=== PATIENT | female | born 1960 | race Caucasian/White ===

== ENCOUNTER → 2018-04-12 | Outpatient (CLI) | payer OTHER | END | disposition home or self-care (01) | LOC: LABPAT 15:49 | PROVIDERS: ATTEND Anesthesiology | DX: Z01.818 Encounter for other preprocedural examination (principal); I10 Essential (primary) hypertension; T85.49XA Other mechanical complication of breast prosthesis and implant, initial encounter; Z85.3 Personal history of malignant neoplasm of breast | CPT/HCPCS: 93005 ==

== ENCOUNTER 2018-04-17 07:23 | Day surgery (SDC) | payer OTHER ==
[2018-04-11 16:18] VITALS: BMI 38.6
[~2018-04-17 07:23] MED LIST: DEXAMETHASONE SOD PHOSPHATE 10 MG/ML 1 ML VIAL IV ONE; HYDROmorphone 1 MG/ML 1 ML SYRINGE IVP PRN; LACTATED RINGERS 1,000 ML IV SCH; LIDOCAINE 1% 20 ML VIAL (10MG/ML) FOR IV START INTRADERMA PRN; MIDAZOLAM 2 MG/2 ML VIAL IV PRN; Pre Op ABX Message 1 EACH MISC MISCELLANE ONE; SCOPOLAMINE 1.5MG/72HR PATCH TRANSDERM ONE
[2018-04-17 07:57] VITALS: RESP 16
[2018-04-17] MEDS: ONDANSETRON 4 MG/2 ML VIAL IVP ONE ×2 (07:57→11:13)
[2018-04-17] MEDS ORDERED: SODIUM CHLORIDE 0.9% 50 ML with ceFAZolin 2,000 MG IV ONE ×2 (09:38)
[2018-04-17 10:45] VITALS: TEMP 96.8
[2018-04-17] MEDS ORDERED: LACTATED RINGERS 1,000 ML IV ONE (10:55)
[2018-04-17] MEDS ORDERED: METOCLOPRAMIDE 5 MG/ML 2 ML VIAL IVP ONE (11:31)
--- NOTE | 2018-04-17 11:31 | OP ---
OPERATIVE REPORT SURGEON: Christopher Roth MD. DATE OF SURGERY: 04/17/2018 PREOPERATIVE DIAGNOSES: 1. Mechanical failure, left breast implant. 2. Personal history of breast cancer. POSTOPERATIVE DIAGNOSES: 1. Mechanical failure, left breast implant. 2. Personal history of breast cancer. OPERATIVE PROCEDURE: Exploration of left reconstructed breast with delayed reconstruction via replacement of implant and revision of reconstructed breast. OPERATIVE INDICATIONS: The patient is a 57-year-old female who has undergone bilateral mastectomy in 2007 for treatment of breast cancer. She underwent bilateral breast reconstruction via tissue instrument designer technique and had saline implants placed after completing expansion. The patient has not been seen in many years, returned to the office approximately 2 weeks ago, reporting a significant decrease in volume involving the left reconstructive breast. Clinical examination was consistent with a rupture of the left breast implant or failure. The patient was counseled as potential options for surgery and elected upon replacement of her left breast implant with necessary revision to the reconstructed breast. She understands the potential risks and complications with all surgery including, but not limited to, infection, wound healing problems, seroma, hematoma, among others. She has requested I perform the surgery. OPERATIVE PROCEDURE SUMMARY: The patient was seen in the presurgical area, markings made, procedure reviewed. All questions answered. She was transported to the operative room where she was placed in the supine position. Following induction of general endotracheal anesthesia, the patient is prepped and draped in the usual fashion. The markings placed preoperatively were now re inked using skin marker. Incision was made following diagram placed on the lateral aspect of the patient's mastectomy incision. Tissues divided in full-thickness fashion with a 10 blade scalpel and subcutaneous tissues divided using cautery until reaching the underlying muscle fascial plane. Skin and subcutaneous tissue flaps were dissected off the muscle fascial plane for approximately 2 cm and then a transverse incision made through this layer offset from the first transverse incision. Incisions made to cauterization exposing the failed left breast implant. The implant was removed and discarded. The cavity had serous fluid, it was not cloudy. There were no exudates, no granulation tissue. The cavity was irrigated. The cavity had significant scar tissue contracture. It required significant modification to create a sufficient size plane for placement of the new saline implant. Dissection was performed with cauterization, dividing scarred expansion capsule and re-elevating portion of the patient's pectorals major muscle flap. Multiple cruciate incisions were made through the expansion capsule layers as well to release the tightness of the structure. Irrigation was performed using several liters of fluid. Hemostasis maintained with cauterization. Gloves were now changed. Nattonye saline-filled breast implant, 363-LF 690 mL volume model was opened on the field, reference #[id number], serial #[id number]. The device was only handled by surgeon after obtaining new gloves. All air is extracted from the implant and then a 100 mL 0.9 normal saline instilled. It is inserted in reconstructive cavity and then the implant was filled to a final volume of 700 mL. The implant appeared with good symmetry to the right side. The incision was now closed, first approximating the muscle flap layer using interrupted 3-0 Vicryl, followed by closure of the deep dermis using inverted interrupted 4-0 Monocryl and then closure of superficial dermis and epidermis running with 5-0 Prolene. Surgical eisenbreg cleansed with saline, dried, postoperative bandages placed using sterile 1 inch paper tape, Kerlix squares, secured paper tape, then position size 3 mammary support with additional gauze padding over the incision site. The patient is awakened from anesthetic, extubated, and transferred to the recovery room in good condition. Stable vital signs. There were no complications. MMODL / IJN: [id number] /
[2018-04-17] MEDS ORDERED: HYDROcodone/APAP 5-325MG 1 EACH TAB PO ONE (13:03)
[2018-04-17 13:14] VITALS: BP 117/62; PULSE 68
== END 2018-04-17 13:32 | disposition home or self-care (01) ==
LOC: OR 07:23
PROVIDERS: ATTEND Plastic Surgery
DX: T85.49XA Other mechanical complication of breast prosthesis and implant, initial encounter (principal); Z85.3 Personal history of malignant neoplasm of breast; I10 Essential (primary) hypertension; Z88.7 Allergy status to serum and vaccine
CPT/HCPCS: 19340; 19328; C1789; J1100; J2765; J2405; J0690

== ENCOUNTER 2018-10-30 09:17 | Emergency (ER) | payer OTHER ==
[2018-10-30 09:21] VITALS: RESP 18
--- NOTE | 2018-10-30 09:51 | ED ---
Lower Extremity Injury HPI - General Chief Complaint: Extremity Injury, Lower Stated Complaint: Knee pain Time Seen by Provider: 10/30/18 09:31 Source: patient, RN notes reviewed Mode of arrival: ambulatory Limitations: no limitations - History of Present Illness Initial Comments: 58-year-old female presents emergency Department chief complaint of right knee pain. Patient states she felt a pop when he states it's not painful. Patient feels like her knee catches. Patient feels pain when she fully bend it fully straighten 2. Patient denies any prior trauma and no prior surgeries. Patient had surgery on her foot in the past. Patient denies any paresthesias no hip pain. - Related Data Home Medications Medication Instructions Recorded Confirmed Carvedilol [Coreg] 3.125 mg PO BID 07/18/15 10/30/18 amLODIPine BESYLATE/BENAZEPRIL 1 cap PO BID 07/18/15 10/30/18 [amLODIPine BESYLATE/BENAZEPRIL 5-20 MG] Previous Rx's Medication Instructions Recorded Ibuprofen [Motrin] 600 mg PO Q8HR PRN #30 tab 10/30/18 Allergies Allergy/AdvReac Type Severity Reaction Status Date / Time Influenza Virus Vaccines Allergy fever and Verified 10/30/18 10:06 ill Review of Systems ROS Statement: Those systems with pertinent positive or pertinent negative responses have been documented in the HPI. ROS Other: All systems not noted in ROS Statement are negative. Past Medical History Past Medical History: Cancer, Hypertension Additional Past Medical History / Comment(s): Breast CA-chemo last dose 2008 History of Any Multi-Drug Resistant Organisms: None Reported Past Surgical History: Breast Surgery, Hysterectomy, Tonsillectomy Additional Past Surgical History / Comment(s): bilateral masectomy Past Anesthesia/Blood Transfusion Reactions: Postoperative Nausea & Vomiting (PONV) Past Psychological History: No Psychological Hx Reported Smoking Status: Former smoker Past Alcohol Use History: None Reported Past Drug Use History: None Reported - Past Family History Mother Family Medical History: No Reported History General Exam General appearance: alert, in no apparent distress Head exam: Present: atraumatic, normocephalic, normal inspection Eye exam: Present: normal appearance, PERRL, EOMI. Absent: scleral icterus, conjunctival injection, periorbital swelling Respiratory exam: Present: normal lung sounds bilaterally. Absent: respiratory distress, wheezes, rales, rhonchi, stridor Cardiovascular Exam: Present: regular rate, normal rhythm, normal heart sounds. Absent: systolic murmur, diastolic murmur, rubs, gallop, clicks Extremities exam: Present: other (Right knee full range of motion no reports discomfort with range of motion especially flexion and full extension. Patient reports catching sensation. There is no laxity negative anterior posterior drawer no pain with valgus or varus neurovascular intact) Skin exam: Present: warm, dry, intact, normal color. Absent: rash Course Vital Signs 10/30/18 09:19 Temperature 97.4 F L Pulse Rate 61 Respiratory 18 Rate Blood Pressure 154/90 O2 Sat by Pulse 99 Oximetry Medical Decision Making - Medical Decision Making 58-year-old female presented emergency Department for knee pain. Patient had slightly injury though she has no laxity. Symptoms are more consistent with meniscus injury. She does have joint effusion on x-ray. Patient will follow-up with orthopedics. Patient advised to continue anti-inflammatories and return for any worsening symptoms. Disposition Clinical Impression: Knee pain, Injury of meniscus of knee Disposition: HOME SELF-CARE Condition: Stable Instructions (If sedation given, give patient instructions): Knee Pain (ED) Additional Instructions: Please return to the Emergency Department if symptoms worsen or any other concerns. Prescriptions: Ibuprofen [Motrin] 600 mg PO Q8HR PRN #30 tab PRN Reason: Pain Is patient prescribed a controlled substance at d/c from ED?: No Referrals: Carlos Roberts DO [Primary Care Provider] - 1-2 days Canelo Gaytan MD [STAFF PHYSICIAN] - 1-2 days Time of Disposition: 10:37
--- NOTE | 2018-10-30 10:11 | XR ---
Right knee HISTORY: Pain, trauma 3 views of the right knee Marginal spurring with joint space loss is present in the medial compartment, patellofemoral joint. S uprapatellar increased density compatible joint effusion. Alignment and bone mineralization are barby l. IMPRESSION: No fracture or dislocation. Joint effusion.
[2018-10-30 11:16] VITALS: BP 151/88; PULSE 63; TEMP 97.5
== END 2018-10-30 11:17 | disposition home or self-care (01) ==
LOC: EC 09:17
DX: S83.8X1A Sprain of other specified parts of right knee, initial encounter (principal); I10 Essential (primary) hypertension; Z87.891 Personal history of nicotine dependence; Z88.7 Allergy status to serum and vaccine; Z79.899 Other long term (current) drug therapy; Z85.3 Personal history of malignant neoplasm of breast; Z92.21 Personal history of antineoplastic chemotherapy; Z90.13 Acquired absence of bilateral breasts and nipples; X58.XXXA Exposure to other specified factors, initial encounter
CPT/HCPCS: 73562; 99283; L1830

== ENCOUNTER → 2020-01-21 | Outpatient (CLI) | payer OTHER ==
--- NOTE | 2020-01-21 18:43 | NM ---
EXAMINATION TYPE: NM bone scan whole body DATE OF EXAM: 01/21/2020 COMPARISON: NONE HISTORY: Chest wall pain. Breast cancer. Delayed whole-body scanning was performed following the injection of 25.7 mCi Tc 99m MDP. Images acq uired 3 hours post injection. FINDINGS: There is symmetric degenerative uptake of the bilateral shoulders, sternoclavicular joints, knees, an d ankles. No suspicious focal abnormality. IMPRESSION: No focal activity suspicious for metastatic disease. Degenerative uptake as above.
== END | disposition home or self-care (01) ==
LOC: RADNMMAIN 10:09
PROVIDERS: ATTEND Internal Medicine Hematology & Oncology
DX: R94.8 Abnormal results of function studies of other organs and systems (principal); C50.111 Malignant neoplasm of central portion of right female breast
CPT/HCPCS: 78306; A9503

== ENCOUNTER → 2020-06-15 | Outpatient (CLI) | payer OTHER ==
--- NOTE | 2020-06-15 08:55 | US ---
EXAMINATION TYPE: US abdomen limited DATE OF EXAM: 06/15/2020 COMPARISON: Ultrasound abdomen Limited July 05, 2010. CLINICAL HISTORY: K81.0 Acute cholecystitis. EXAM MEASUREMENTS: Liver Length: 13.6 cm Gallbladder Wall: 0.2 cm CBD: 0.4 cm Right Kidney: 10.8 x 5.2 x 5.8 cm Technically difficult study due to extensive midline bowel gas and patient body habitus. Pancreas: not visualized due to midline bowel gas. Liver: difficult to penetrate Gallbladder: no stones seen, difficult to visualize . Evidence for sonographic Daugherty's sign: Yes CBD: wnl Right Kidney: No hydronephrosis or masses seen Suboptimal evaluation of pancreas on initial images due to shadowing from overlying bowel gas. Visual ized liver remains heterogeneously hyperechoic without intrapelvic ductal dilatation. No surrounding ascites. Gallbladder remains poorly seen without shadowing mobile intraluminal gallstones. IMPRESSION: No gallstones or ultrasound evidence for acute cholecystitis. Persistent suspected marked fatty infiltration of liver. No significant change from prior study.
== END | disposition home or self-care (01) ==
LOC: RADUSWWP 08:03
PROVIDERS: ATTEND Family Medicine
DX: K81.0 Acute cholecystitis (principal)
CPT/HCPCS: 76705

== ENCOUNTER → 2020-07-16 | Outpatient (CLI) | payer OTHER ==
--- NOTE | 2020-07-16 09:59 | NM ---
EXAMINATION TYPE: NM hepatobiliary w EF DATE OF EXAM: 07/16/2020 COMPARISON: Prior biliary scan 08/02/2010, ultrasound abdomen 06/15/2020 HISTORY: Fatty liver, K 76.0 TECHNIQUE: After the intravenous administration of 4.9 mCi Tc 99m Mebrofenin hepatobiliary scintigrap hy is performed. Immediate images post injection. FINDINGS: There is satisfactory initial accumulation of tracer by the liver. The gallbladder is visualized wit hin 6 minutes. The small bowel activity is noted within 24 minutes. At one hour 8 ounces of oral en sure plus is given to mimic CCK and gallbladder ejection fraction is calculated at 70 %, in the barby l range. Therefore there is no scintigraphic evidence of cystic or common bile duct obstruction to s uggest acute cholecystitis or gallbladder dyskinesia. IMPRESSION: Exam is within normal limits.
== END | disposition home or self-care (01) ==
LOC: RADNMMAIN 06:32
PROVIDERS: ATTEND Family Medicine
DX: K76.0 Fatty (change of) liver, not elsewhere classified (principal)
CPT/HCPCS: 78226; A9537

== ENCOUNTER 2024-04-02 08:00 | Day surgery (SDC) | payer BC ==
[~2024-04-02 08:00] MED LIST changes: -DEXAMETHASONE SOD PHOSPHATE 10 MG/ML 1 ML VIAL IV ONE; -HYDROmorphone 1 MG/ML 1 ML SYRINGE IVP PRN; -LIDOCAINE 1% 20 ML VIAL (10MG/ML) FOR IV START INTRADERMA PRN; -MIDAZOLAM 2 MG/2 ML VIAL IV PRN; -Pre Op ABX Message 1 EACH MISC MISCELLANE ONE; -SCOPOLAMINE 1.5MG/72HR PATCH TRANSDERM ONE
[2024-04-02 08:34] VITALS: TEMP 97
[2024-04-02] MEDS: SODIUM CHLORIDE 0.9% 500 ML 500 ML IV ONE (08:40)
[2024-04-02] MEDS: SODIUM CHLORIDE 0.9% 500 ML 500 ML IV SCH (08:40)
[2024-04-02] MEDS: LIDOCAINE 1% (10MG/ML) FOR IV START INTRADERMA STA (08:40)
[2024-04-02 09:16] LABS: African American GFR (CKD) 59 (>60 ml/min/1.73 sqM); Anion Gap 10 mmol/L; Blood Urea Nitrogen 26 mg/dL (7-17); Calcium 9.8 mg/dL (8.4-10.2); Carbon Dioxide 28 mmol/L (22-30); Chloride 102 mmol/L (98-107); Glucose 116 mg/dL (74-99); Non-African American GFR(CKD) 51 (>60 ml/min/1.73 sqM); Potassium 4.3 mmol/L (3.5-5.1); Sodium 140 mmol/L (137-145)
[2024-04-02 09:31] LABS: INR 2.8 (<1.2); Prothrombin Time 27.3 sec (10.0-12.5)
[2024-04-02] MEDS: ONDANSETRON 4 MG/2 ML VIAL IVP STA (09:33)
[2024-04-02] MEDS ORDERED: PROPOFOL 10 MG/ML 20 ML VIAL IV ONE (09:55)
[2024-04-02] MEDS ORDERED: LIDOCAINE 1% INJ 10MG/ML (20 ML MDV) ONE (09:55)
[2024-04-02] MEDS: BENZOCAINE SPRAY 1 EACH MM ONE (10:26)
[2024-04-02] MEDS ORDERED: SODIUM CHLORIDE 0.9% 1,000 ML IV SCH (11:15)
[2024-04-02 11:25] VITALS: RESP 16
--- NOTE | 2024-04-02 11:29 | ECHOS ---
STRESS ECHOCARDIOGRAM INDICATION: Persistent atrial fibrillation. PROCEDURE NOTE: After obtaining informed consent, electrical cardioversion was attempted using 150 and 200 joules of synchronized DC current. We were unsuccessful after 2 attempts. The patient has history of breast implants and the cardioversion pads were placed away from the breast. The patient is on Coumadin and INRs have been managed in my office and we have documented multiple therapeutic INRs. CONCLUSIONS: Unsuccessful cardioversion. PLAN: I am going to try the patient on rhythm suppressive therapy and bring her back and make another attempted cardioversion. MMODL / IJN: [id number] /
[2024-04-02 12:09] VITALS: BP 117/76; PULSE 88
== END 2024-04-02 12:33 | disposition home or self-care (01) ==
LOC: OR 08:00
PROVIDERS: ATTEND Internal Medicine Cardiovascular Disease
CPT/HCPCS: 80048; 85610; 92960; 93312; 93320; 93325

== ENCOUNTER → 2024-07-01 | Outpatient (CLI) | payer BC ==
[2024-07-01 15:49] LABS: INR 2.07 sec (0.93-1.11)
== END | disposition home or self-care (01) ==
LOC: LABWHC1 09:22
PROVIDERS: ATTEND Internal Medicine Clinical Cardiac Electrophysiology
DX: I48.19 Other persistent atrial fibrillation (principal)
CPT/HCPCS: 36415; 85610

== ENCOUNTER → 2024-09-02 | Outpatient (CLI) | payer BC ==
[2024-09-02 15:00] LABS: Blood Urea Nitrogen 30.4 mg/dL (9.0-27.0); Carbon Dioxide 23.9 mmol/L (21.6-31.8); Chloride 104 mmol/L (96-109); Sodium 143 mmol/L (135-145)
[2024-09-02 15:20] LABS: HCT 39.3 % (37.2-46.3); HGB 12.3 g/dL (12.0-15.0); MCH 28.3 pg (27.0-32.0); MCHC 31.3 g/dL (32.0-37.0); MCV 90.3 FL (80.0-97.0); Mean Platelet Volume 10.5 FL (9.5-12.2); NRBC Per 100 WBC 0 X 10*3/uL (0.00-0.01); Platelet Count 368 X 10*3/uL (140-440); RBC 4.35 X 10*6/uL (4.10-5.20); RDW 15.6 % (11.5-14.5); WBC 8.59 X 10*3/uL (4.50-10.00)
== END | disposition home or self-care (01) ==
LOC: LABPAT 09:00
PROVIDERS: ATTEND Internal Medicine Clinical Cardiac Electrophysiology
DX: Z01.812 Encounter for preprocedural laboratory examination (principal); I48.19 Other persistent atrial fibrillation
CPT/HCPCS: 80051; 82565; 84520; 85027

== ENCOUNTER 2024-09-17 07:28 | Day surgery (SDC) | payer BC ==
[2024-09-13 09:19] VITALS: BMI 42.5
[2024-09-17] MEDS: SODIUM CHLORIDE 0.9% 1,000 ML IV SCH (08:25)
[2024-09-17] MEDS: IV FLUID CONTINUATION 1,000 ML IV ONE (08:26)
[2024-09-17 08:32] LABS: INR 2.6 (<1.2); Prothrombin Time 26.4 sec (10.0-12.5)
[2024-09-17] MEDS ORDERED: ONDANSETRON 4 MG/2 ML VIAL ONE (09:35)
[2024-09-17] MEDS ORDERED: HEPARIN SODIUM,PORCINE 10,000 UNIT/ML 1 ML VIAL ONE (09:35)
[2024-09-17] MEDS ORDERED: ePHEDrine 50 MG/ML 1 ML VIAL ONE (09:35)
[2024-09-17] MEDS ORDERED: MIDAZOLAM 2 MG/2 ML VIAL ONE (09:35)
[2024-09-17] MEDS ORDERED: LIDOCAINE 1% INJ 10MG/ML (20 ML MDV) ONE (09:35)
[2024-09-17] MEDS ORDERED: fentaNYL (PF) 50 MCG/ML 2 ML AMP ONE (09:35)
[2024-09-17] MEDS ORDERED: PROPOFOL 10 MG/ML 20 ML VIAL IV ONE (09:35)
[2024-09-17] MEDS ORDERED: PHENYLEPHRINE-0.9% NACL SYG 1,000 MCG/10 ML SYRINGE ONE (09:35)
[2024-09-17] MEDS ORDERED: ROCURONIUM 10 MG/ML (5 ML VIAL) IV ONE (09:35)
[2024-09-17] MEDS ORDERED: PHENYLEPHRINE 10 MG/ML VIAL ONE (09:35)
[2024-09-17] MEDS ORDERED: SUCCINYLCHOLINE CHLORIDE 200 MG/10 ML VIAL IV ONE (09:35)
[2024-09-17] MEDS: HEPARIN SOD,PORK IN 0.45% NACL 25,000 UNIT in 0.45% NACL 1 250ML.BAG IV ONE (10:00)
--- NOTE | 2024-09-17 10:08 | P.HPCAR ---
History of Present Illness This is Dr. Grossman dictating an H/P on this patient. Patient of Dr. Roberts and Dr. Matamoros The patient was interviewed and examined IMPRESSION / ASSESSMENT: Persistent symptomatic atrial fibrillation Shortness of breath with average activities Left ventricular ejection fraction of the lower limits of normal Lexiscan stress test did not show any evidence for ischemia, normal myocardial perfusion Holter monitor shows persistent atrial fibrillation average heart rates of 100 bpm Left ventricular ejection fraction at the lower limits of normal to 50% Creatinine 1.5 Moderate to severe MR Hypertension PLAN: Continue warfarin. Today's INR is 2.6 Calculate heparin dose Proceed with A-fib ablation for persistent atrial fibrillation HPI Patient continues to complain of shortness of breath with exertion. Denies any chest discomfort fever chills syncope ROS: No fever chills or rigors, no cough, phlegm or expectoration, no nausea, vomiting or diarrhea, no hematuria, dysuria, no musculoskeletal complaints, no strokes or seizures, no skin lesions. EXAMINATION: Blood pressure 146/75 and 134/81 Heart rate 95 beats minute irregular and afebrile Breath sounds are reduced bilaterally Heart sounds S1-S2 are soft with a soft systolic murmur the apex Abdomen is soft No lower extremity edema Increased BMI of 44 REVIEW OF LABS, ECG & MEDICAL DATA INR 2.6 TSH 2.3 Physical Exam Vitals: Vital Signs Temp Pulse Resp BP BP Pulse Ox 09/17/24 08:22 97.4 F L 95 18 146/75 134/81 97 Intake and Output 09/16/24 09/17/24 09/17/24 22:59 06:59 14:59 Intake Total 50 Balance 50 Intake: IV 50 Other: Weight 112.4 kg Past Medical History Past Medical History: Atrial Fibrillation, Cancer, Hypertension Additional Past Medical History / Comment(s): Breast CA-chemo last dose 2008 History of Any Multi-Drug Resistant Organisms: None Reported Past Surgical History: Breast Surgery, Hysterectomy, Orthopedic Surgery, Tonsillectomy Additional Past Surgical History / Comment(s): bilateral masectomy, Rt. foot surgery, IRIS Past Anesthesia/Blood Transfusion Reactions: Postoperative Nausea & Vomiting (PONV) Smoking Status: Former smoker - Past Family History Mother Family Medical History: Hypertension Father Family Medical History: Coronary Artery Disease (CAD), CVA/TIA, Diabetes Mellitus, Hypertension Physical Examination Vital Signs Temp Pulse Resp BP BP Pulse Ox 09/17/24 08:22 97.4 F L 95 18 146/75 134/81 97 Intake and Output 09/16/24 09/17/24 09/17/24 22:59 06:59 14:59 Intake Total 50 Balance 50 Intake: IV 50 Other: Weight 112.4 kg Results Coagulation 09/17/24 Range/Units 07:50 PT 26.4 H (10.0-12.5) sec Current Medications Generic Name Dose Route Start Last Admin Trade Name Nimeshq PRN Reason Stop Dose Admin Sodium Chloride 1,000 mls @ 20 mls/hr 09/17/24 05:59 09/17/24 08:25 Saline 0.9% IV 10/17/24 05:58 20 mls/hr .Q24H SANDY Administration Intake and Output 09/16/24 09/17/24 09/17/24 22:59 06:59 14:59 Intake Total 50 Balance 50 Intake: IV 50 Other: Weight 112.4 kg Patient Weight 09/18/24 06:59 Weight 112.4 kg
[2024-09-17] MEDS: LIDOCAINE 1% INJ 10MG/ML (20 ML MDV) SQ ONE (10:30)
[2024-09-17] MEDS: HEPARIN SODIUM,PORCINE 10,000 UNIT in SODIUM CHLORIDE 0.9% 1,000 ML IRRIGATION ONE (11:08)
[2024-09-17] MEDS: HEPARIN SODIUM,PORCINE (1 ML) 2,500 UNIT in SODIUM CHLORIDE 0.9% 250 ML IRRIGATION ONE (11:08)
[2024-09-17] MEDS: SODIUM CHLORIDE 0.9% 500 ML 500 ML IV ONE (13:20)
[2024-09-17] MEDS ORDERED: ACETAMINOPHEN TAB 325 MG TAB PO PRN (13:41)
--- NOTE | 2024-09-17 14:00 | P.EPPROC ---
- EP Procedure Note Electrophysiology Procedure Note: PROCEDURE A. fib ablation with antral level pulmonary vein isolation, left atrial roof ablation and left atrial septal ablation DIAGNOSIS Persistent atrial fibrillation, symptomatic, refractory to therapy RESULT No left atrial appendage mass seen on intracardiac echo, very large left atrium greater than 140 mL volume Successful A. fib ablation/pulmonary vein isolation of all veins using cryo- ablation Complete entrance block in all 4 veins confirmed No evidence for phrenic nerve injury Left atrial septal ablation Left atrial roof ablation Esophageal deflection YES, right-sided esophagus Electrical cardioversion with a synchronized shock across the chest YES / NO PROCEDURE DETAILS Written informed consent prior to procedure. Patient brought to the EP lab. General anesthesia given. Heparin administered. A city maintained above 300 seconds Both groins prepped and draped per protocol and venous sheaths placed. Esophagus intubated, circa catheter for temperature monitoring an endoscope for possible esophageal deflection. Phrenic nerve monitoring performed. Esophageal temperature monitoring performed. Esophageal deflection performed if circa catheter overlapping with the balloon or circa temperature less than 27.5°C Intracardiac echocardiography performed. Pericardium evaluated. Left atrial appendage evaluated. Left atrium evaluated along with pulmonary veins Transseptal catheterization performed under fluoroscopic guidance and intracardiac echo guidance Cryoablation sheath exchanged, balloon catheter along with achieve catheter placed in the left atrium. Pulmonary veins isolated in the following sequence: Left superior pulmonary vein followed by left inferior pulmonary vein, followed by right inferior pulmonary vein and lastly right superior pulmonary vein. Phrenic nerve stimulation along with capture thresholds within the SVC and right superior pulmonary vein to identify the phrenic nerve proximity to the cryo- balloon. Pulmonary veins isolated and confirmed with entrance and exit block. Phrenic nerve integrity confirmed at the end of the procedure Ablation of the left atrial roof performed with sequential lesions from the left superior to the right superior pulmonary veins. Ablation of the electrograms confirmed with voltage mapping and high-output pace mapping and additional RF lesions in the mid roof Ablation of the left atrial septum performed with cannulation of the superior branch of the right inferior or the inferior branch of the right superior vein to achieve ablation of the posterior septum of the left atrium. Confirmed with voltage mapping Electrical cardioversion performed for persistence of atrial fibrillation despite successful ablation. Patient maintained sinus rhythm thereafter Diagnostic catheters for the high right atrium, His bundle, coronary sinus placed. LA and RA pressures recorded LA pressure: 24/10 Diagnostic EP study with coronary sinus pacing and recording Baseline measurements: LA interval 200 ms, QT 386 and QRS 84 ms AH 104 and HV 43 ms Venous sheaths were removed and hemostasis assured with a closure device. Patient extubated and transferred to recovery Increase procedural time Very large left atrium. Very large left and right superior pulmonary veins requiring multiple ablations Difficult occlusion of the right inferior pulmonary vein. Each vein tributary was individually cannulated and isolated for antral level isolation which was successful Very long left atrial roof. Difficulty maintaining catheter position in the mid roof. V-shaped left atrial roof Mapping and ablation within this left atrium took an extra long time PROCEDURES PERFORMED Diagnostic EP study CS pacing and recording Left and right transseptal catheterization Catheter the mapping of the tachycardia Intracardiac echocardiography Pulmonary vein isolation with transseptal and comprehensive EPS, [id number] Extended procedure duration Left atrial roof line, [id number] Linear ablation, left atrium, +[id number] Electrical cardioversion with a synchronized shock across the chest [id number]
[2024-09-17] MEDS: ACETAMINOPHEN IV (For NPO) 1,000 MG in EMPTY BAG 1 BAG IVPB ONE (15:16)
[2024-09-17] MEDS: WARFARIN 2.5 MG TAB PO ONE (17:10)
[2024-09-18 08:06] VITALS: RESP 12
[2024-09-18] MEDS: METOPROLOL SUCCINATE (ER) 50 MG TAB.ER.24H PO SCH (08:18)
[2024-09-18] MEDS: lisinopriL 20 MG TAB PO SCH (08:18)
[2024-09-18] MEDS: hydroCHLOROthiazide 12.5 MG CAP PO SCH (08:18)
[2024-09-18] MEDS: amLODIPine 10 MG TAB PO SCH (08:18)
[2024-09-18 08:26] VITALS: BP 110/56; PULSE 85; TEMP 98.1
[2024-09-18] MEDS ORDERED: NON FORMULARY DRUG (Amlodipine Besylate/Benazepril [Amlodipine Besylate/Benazepril 10-40 M PO SCH (09:00)
[2024-09-18] MEDS ORDERED: WARFARIN 5 MG TAB PO SCH (18:00)
== END 2024-09-18 12:17 | disposition home or self-care (01) ==
LOC: CATHEP 07:28 → 6NMEDSUR 13:21 → CATHEP 09-18 12:17
PROVIDERS: ATTEND Internal Medicine Clinical Cardiac Electrophysiology
DX: I48.19 Other persistent atrial fibrillation (principal); I10 Essential (primary) hypertension; Z82.3 Family history of stroke; Z83.3 Family history of diabetes mellitus; Z85.3 Personal history of malignant neoplasm of breast; Z90.89 Acquired absence of other organs; Z90.13 Acquired absence of bilateral breasts and nipples; Z90.710 Acquired absence of both cervix and uterus; Z87.891 Personal history of nicotine dependence; Z82.49 Family history of ischemic heart disease and other diseases of the circulatory system; Z88.7 Allergy status to serum and vaccine; Z79.01 Long term (current) use of anticoagulants; Z79.899 Other long term (current) drug therapy
CPT/HCPCS: 92960; 93656; 93657; 86900; 86901; 84443; 85610; 86850; C1894; C1769; C1760 ×2; C1730 ×2; C1731; C1759; C1733; C1766; C1732; J2250; J0330; J1644 ×3; J2405; J2003; J3010; J0131; J2704; J2371 ×2